=== PATIENT | male | born 1990 | race Caucasian/White ===

== ENCOUNTER 2018-09-15 15:10 | Emergency (ER) | payer OTHER ==
[~2018-09-15] VITALS: Ht 188 cm; Wt 106.6 kg
[2018-09-15] MEDS ORDERED: EPIPEN0.3 MG/0.3 IM (16:36)
[2018-09-15] MEDS ORDERED: BENADRYL25 MG PO (16:36)
[2018-09-15] MEDS ORDERED: Prednisone20 MG PO (16:36)
== END 2018-09-15 16:59 | disposition home or self-care (01) ==
LOC: ER 15:10
DX: T63.441A Toxic effect of venom of bees, accidental (unintentional), initial encounter (principal); L50.0 Allergic urticaria
CPT/HCPCS: 96374; 99283-25; J2930

== ENCOUNTER 2021-01-31 11:47 | Emergency (ER) | payer SELFPAY ==
[~2021-01-31] VITALS: Ht 188 cm; Wt 90.7 kg
[~2021-01-31 11:47] MED LIST: BENADRYL25 MG PO; EPIPEN0.3 MG/0.3 IM; Prednisone20 MG PO
[2021-01-31] MEDS ORDERED: ONDA4ODT MM (12:12)
== END 2021-01-31 12:27 | disposition home or self-care (01) ==
LOC: ER 11:47
DX: R55 Syncope and collapse (principal); R11.2 Nausea with vomiting, unspecified; F17.210 Nicotine dependence, cigarettes, uncomplicated
CPT/HCPCS: 99284; A9270